=== PATIENT | female | born 1955 | race Native Hawaiian/Other Pacific Islander ===

== ENCOUNTER 2019-05-15 11:56 | Emergency (ER) | payer BC ==
[~2019-05-15] VITALS: Ht 170.2 cm; Wt 103.0 kg
[2019-05-15 11:56] VITALS: TEMP 97.5
[2019-05-15 12:42] LABS: PLATELET COUNT 381 K/uL (152-353)
[2019-05-15 12:50] LABS: POTASSIUM 4.8 mmol/L (3.6-5.2); SODIUM 138 mmol/L (136-145)
[2019-05-15 14:26] VITALS: BP 187/78
== END 2019-05-15 15:01 | disposition short-term general hospital (02) ==
LOC: ED 12:08
PROVIDERS: Emergency Medicine
DX: S82.251A Displaced comminuted fracture of shaft of right tibia, initial encounter for closed fracture (principal); V48.4XXA Person boarding or alighting a car injured in noncollision transport accident, initial encounter; Y93.89 Activity, other specified; Y92.89 Other specified places as the place of occurrence of the external cause
CPT/HCPCS: 80053; 83735; 84484; 85027; 93005; 96374; 96375; 99285; J2270; J2405